=== PATIENT | male | born 1940 | race Caucasian/White ===

== ENCOUNTER → 2019-07-30 12:57 | Outpatient (CLI) | payer MEDICARE, SELFPAY ==
[2019-07-30 15:53] LABS: Prostate Specific Ag Screen 3.3 ng/mL (0.0-4.0)
== END ==
PROVIDERS: Visit Provider Urology
DX: Z12.5 Encounter for screening for malignant neoplasm of prostate (principal)
CPT/HCPCS: 36415; G0103

== ENCOUNTER → 2020-11-09 14:45 | Outpatient (CLI) | payer MEDICARE, SELFPAY ==
[2020-11-09 16:09] LABS: Prostate Specific Ag Screen 2.4 ng/ml (0.0-4.0)
== END ==
PROVIDERS: Visit Provider Urology
DX: Z12.5 Encounter for screening for malignant neoplasm of prostate (principal)
CPT/HCPCS: 36415; G0103

== ENCOUNTER → 2021-12-19 13:41 | Outpatient (CLI) | payer MEDICARE, SELFPAY ==
[2021-12-19 16:12] LABS: Prostate Specific Ag Screen 2.2 ng/ml (0.0-4.0)
== END ==
PROVIDERS: Visit Provider Urology
DX: Z12.5 Encounter for screening for malignant neoplasm of prostate (principal)
CPT/HCPCS: 36415; G0103